=== PATIENT | male | born 1990 | race Two or more races ===

== ENCOUNTER 2020-06-23 21:05 | Emergency (ER) | payer MEDICARE, MEDICAID ==
[~2020-06-23] VITALS: Ht 170.2 cm; Wt 74.8 kg
[2020-06-23] MEDS ORDERED: BENZOCAINE (DENTAL) 20 % SPRAY 60ML MT ONE (21:45)
[2020-06-23] MEDS ORDERED: CLINDAMYCIN 900MG IV 50 ML IV ONE (22:00)
[2020-06-23 22:15] VITALS: BP 127/88
[2020-06-23] MEDS ORDERED: MORPHINE SULF INJ 2 MG/ML SYRINGE 1ML IV ONE (22:15)
[2020-06-23] MEDS ORDERED: ONDANSETRON HCL 4 MG/2 ML VIAL IV ONE (22:15)
== END 2020-06-23 23:20 | disposition home or self-care (01) ==
LOC: ER 21:16
DX: K02.9 Dental caries, unspecified (principal); J02.9 Acute pharyngitis, unspecified
CPT/HCPCS: 96365; 96375; 99284; J2270; J2405; J3490

== ENCOUNTER → 2022-09-25 | Outpatient (CLI) | payer OTHER, MEDICAID ==
[~2022-09-25] MED LIST: ALBUTEROL SULF 2.5 MG/0.5ML(0.5%) NEB SOLN ONE
== END | disposition home or self-care (01) ==
LOC: RT 08:50
PROVIDERS: ATTEND Internal Medicine Pulmonary Disease
DX: J45.40 Moderate persistent asthma, uncomplicated (principal)
CPT/HCPCS: 94060; 94727; 94729